=== PATIENT | male | born 1955 | race Caucasian/White ===

== ENCOUNTER → 2024-06-09 | Day surgery (SDC) | payer BC, MEDICARE ==
[2024-06-05 16:05] LABS: BASOPHILS # (AUTO) 0.1 (0.0-0.1); EOSINOPHILS # (AUTO) 0.3 (0.0-0.4); EOSINOPHILS % 4.8 % (0.0-6.0); HEMATOCRIT 45.1 % (38.2-49.6); HEMOGLOBIN 14.4 g/dL (14.0-18.0); LYMPHOCYTES # (AUTO) 2.1 (1.0-3.2); LYMPHOCYTES % 34.1 % (18.0-39.1); MEAN CORPUSCULAR HEMOGLOBIN 29.7 pg (28-32); MEAN CORPUSCULAR HGB CONC 31.9 g/dL (31-35); MONOCYTES # (AUTO) 0.6 (0.2-0.8); MONOCYTES % 9.1 % (4.4-11.3); NEUTROPHILS # (AUTO) 3.2 (2.1-6.9); NEUTROPHILS % 50.8 % (38.7-80.0); PLATELET COUNT 172 x10e3/uL (140-360); RED BLOOD COUNT 4.85 x10e6/uL (4.3-5.7); RED CELL DISTRIBUTION WIDTH 13.6 % (11.7-14.4); WHITE BLOOD COUNT 6.27 x10e3/uL (4.8-10.8)
[~2024-06-09] MED LIST: ACETAMINOPHEN 1000 MG/100 ML 100 ML IV ONE; ACETAMINOPHEN 1000 MG/100 ML IV PRN; ASPIRIN 325 MG TAB PO SCH; ASPIRIN81 MG PO; B12 ACTIVE1000 MCG; CELECOXIB 100 MG CAP PO SCH; DEXAMETHASONE SOD PHOS INJ 4 MG/ML SDV ONE; DIPHENHYDRAMINE HCL INJ 50 MG/ML VIAL IV PRN; DOCUSATE SODIUM 100 MG CAP PO PRN; EPINEPHRINE HCL 1:1000 1ML 1 MG/ML AMP ONE; FLOMAX0.4 MG PO; GLYCOPYRROLATE INJ 0.2 MG/ML VIAL ONE; HYDROCODONE/APAP 5MG-325MG TAB PO PRN; HYDROCODONE/APAP 7.5MG-325MG 1 EA TAB PO PRN; KETAMINE HCL INJ 50 MG/ML 10 ML VIAL ONE; LIDOCAINE HCL 2% LOCAL INJ 5 ML SDV VIAL INJ ONE; LISINOPRIL-HCT1 EACH PO; MULTI-VITAMIN1 EACH PO; NEXIUM20 MG PO; ONDANSETRON HCL INJ 2MG/ML 2ML 2 MG/ML VIAL ONE; PROPOFOL IV EMULSION 10 MG/ML 20 ML VIAL ONE; ROPIVACAINE 0.5% 5 MG/ML 30 ML SDV ONE; ROPIVACAINE/EPI/CLONIDINE/KET 50 ML SYRINGE INJ ONE; SODIUM CHLORIDE 0.9% 1000ML 1,000 ML IV SCH; SODIUM CHLORIDE 0.9% 500ML 500 ML ONE; TRANEXAMIC ACID 20 ML ONE; Vancomycin IV 500 MG ONE
[2024-06-09] MEDS: GABAPENTIN 300 MG CAP ONE (06:20)
[2024-06-09] MEDS: CELECOXIB 200 MG CAP ONE (06:21)
[2024-06-09] MEDS: CEFAZOLIN SODIUM 2 GM ONE (06:21)
[2024-06-09] MEDS: DEXAMETHASONE SOD PHOS 10 MG/1 ML VIAL ONE (06:21)
[2024-06-09] MEDS: LACTATED RINGER'S 1,000 ML ONE (06:22)
[2024-06-09] MEDS: FENTANYL CITRATE/PF 100MCG/2 ML INJ ONE (08:47)
[2024-06-09] MEDS: ONDANSETRON HCL INJ 2MG/ML 2ML 2 MG/ML VIAL ONE (10:25)
[2024-06-09] MEDS: HYDROCODONE/APAP 7.5MG-325MG 1 EA TAB ONE (11:05)
[2024-06-09 11:15] VITALS: BP 128/76; PULSE 67; RESP 16; O2SAT 97
== END | disposition home health service (06) ==
LOC: OR 05:35
PROVIDERS: ATTEND Specialist
DX: M17.11 Unilateral primary osteoarthritis, right knee (principal); M06.9 Rheumatoid arthritis, unspecified; I10 Essential (primary) hypertension; K21.9 Gastro-esophageal reflux disease without esophagitis; Z01.812 Encounter for preprocedural laboratory examination; Z79.82 Long term (current) use of aspirin; Z79.899 Other long term (current) drug therapy
CPT/HCPCS: 27447; 36415; 73560; 85025; 86850; 86900; 97110; 97116; 97161; C1713 ×2; C1776 ×3; J0131; J0171; J0690; J1100 ×2; J2003; J2405; J2704; J2795; J3010; J3370; J7040; J7121